=== PATIENT | male | born 1960 | race Two or more races ===

== ENCOUNTER 2022-10-29 07:08 | Emergency (ER) | payer MEDICAID ==
[~2022-10-29] VITALS: Ht 182.9 cm; Wt 90.1 kg
[~2022-10-29 07:08] MED LIST: ARIP1TAB7 PO; GABA300C10 PO; LIDO5DIS21; LISI-275 PO; PAR20T PO
[2022-10-29] MEDS ORDERED: IOHEXOL 350 MG/ML 100ML IJ ONE (08:11)
[2022-10-29 08:23] LABS: Urine Bacteria NONE SEEN /hpf (None Seen); Urine Blood Negative /uL (Negative); Urine WBC 1 /hpf (0 - 3)
[2022-10-29 08:35] LABS: Basophils # (auto) 0 10 ^3/uL (0-0.2); Basophils % (auto) 0.5 % (0.0-2.0); Eosinophils # (auto) 0.7 10 ^3/uL (0-0.8); Hematocrit 49.8 % (41.0-53.0); Hemoglobin 17.1 g/dL (13.5-17.5); Lymphocytes % (auto) 32.9 % (10.0-50.0); Mean Corpuscular Hemoglobin 31.9 pg (28.0-32.0); Mean Corpuscular Hgb Conc. 34.2 g/dL (32.0-36.0); Mean Corpuscular Volume 93.3 fL (80.0-100.0); Monocytes # (auto) 0.7 10 ^3/uL (0-1.3); Monocytes % (auto) 10.9 % (0.0-12.0); Neutrophils # (auto) 2.6 10 ^3/uL (1.6-8.6); Neutrophils % (auto) 43.7 % (37.0-80.0); Nucleated Red Blood Cells % 0.1 %; Red Blood Cells 5.34 10^6/uL (4.5-5.90); Red Cell Distribution Width 13.8 % (11.8-14.3)
[2022-10-29 10:56] LABS: Potassium 4.6 mmol/L (3.5-5.1)
[2022-10-29 11:04] LABS: Albumin 3.5 g/dL (3.4-5.0); BUN/Creatinine Ratio 15.1 (10.0-20.0); Calcium 9.2 mg/dL (8.5-10.1); Magnesium 2.4 mg/dL (1.6-2.6)
[2022-10-29 11:06] LABS: Bilirubin, Total 0.6 mg/dL (0.2-1.0); Total Protein 8.1 g/dL (6.4-8.2)
[2022-10-29 15:00] VITALS: BP 171/76
== END 2022-10-29 16:09 | disposition left against medical advice (07) ==
LOC: ER 07:08
DX: H91.91 Unspecified hearing loss, right ear (principal); R42 Dizziness and giddiness; M10.9 Gout, unspecified; I10 Essential (primary) hypertension; F41.9 Anxiety disorder, unspecified; F32.9 Major depressive disorder, single episode, unspecified; F17.210 Nicotine dependence, cigarettes, uncomplicated
CPT/HCPCS: 36415; 70496; 71045; 80053; 81001; 83735; 84484; 85025; 99285; Q9967

== ENCOUNTER 2023-05-08 07:03 | Emergency (ER) | payer MEDICAID ==
[~2023-05-08] VITALS: Ht 182.9 cm; Wt 103.2 kg
[~2023-05-08 07:03] MED LIST changes: +GABA-1250 PO; -GABA300C10 PO
[2023-05-08 07:39] VITALS: BP 129/87; PULSE 112; RESP 18; TEMP 98.4; O2SAT 96
[2023-05-08] MEDS ORDERED: ACETAMINOPHEN 500 MG TAB PO ONE (07:45)
[2023-05-08] MEDS ORDERED: IBUP-1456 PO (08:32)
[2023-05-08] MEDS ORDERED: CEPH500C PO (08:32)
[2023-05-08] MEDS ORDERED: TAMS-35 PO ×2 (21:08→21:09)
[2023-05-08] MEDS ORDERED: LISI10TA34 PO ×2 (21:08→21:09)
== END 2023-05-08 08:37 | disposition home or self-care (01) ==
LOC: ER 07:03
DX: S46.911A Strain of unspecified muscle, fascia and tendon at shoulder and upper arm level, right arm, initial encounter (principal); S16.1XXA Strain of muscle, fascia and tendon at neck level, initial encounter; S00.83XA Contusion of other part of head, initial encounter; I10 Essential (primary) hypertension; F17.210 Nicotine dependence, cigarettes, uncomplicated; W20.8XXA Other cause of strike by thrown, projected or falling object, initial encounter; Y93.89 Activity, other specified; Y92.89 Other specified places as the place of occurrence of the external cause; Y99.8 Other external cause status
CPT/HCPCS: 70450; 73030

== ENCOUNTER 2023-05-08 18:36 | Emergency (ER) | payer MEDICAID ==
[~2023-05-08] VITALS: Ht 182.9 cm; Wt 102.9 kg
[~2023-05-08 18:36] MED LIST changes: +CEPH500C PO; +IBUP-1456 PO
[2023-05-08] MEDS ORDERED: LISI10TA34 PO ×2 (21:08→21:09)
[2023-05-08] MEDS ORDERED: TAMS-35 PO ×2 (21:08→21:09)
[2023-05-08 21:42] VITALS: BP 155/84; PULSE 88; RESP 15; TEMP 98.7; O2SAT 98
== END 2023-05-08 21:43 | disposition home or self-care (01) ==
LOC: ER 18:36
DX: I10 Essential (primary) hypertension (principal); F17.210 Nicotine dependence, cigarettes, uncomplicated; N40.0 Benign prostatic hyperplasia without lower urinary tract symptoms; Z76.0 Encounter for issue of repeat prescription

== ENCOUNTER 2023-05-13 18:40 | Emergency (ER) | payer MEDICAID ==
[~2023-05-13] VITALS: Ht 182.9 cm; Wt 107.1 kg
[~2023-05-13 18:40] MED LIST changes: +LISI10TA34 PO; +TAMS-35 PO
[2023-05-13 19:35] VITALS: BP 152/87; PULSE 79; RESP 19; TEMP 98.4
[2023-05-13] MEDS ORDERED: NAP500T PO (22:14)
[2023-05-13 22:27] VITALS: O2SAT 97
== END 2023-05-13 22:38 | disposition home or self-care (01) ==
LOC: ER 18:40
DX: S83.8X2A Sprain of other specified parts of left knee, initial encounter (principal); M25.562 Pain in left knee; G89.29 Other chronic pain; I10 Essential (primary) hypertension; M10.9 Gout, unspecified; F41.9 Anxiety disorder, unspecified; F32.9 Major depressive disorder, single episode, unspecified; F17.210 Nicotine dependence, cigarettes, uncomplicated; Z98.890 Other specified postprocedural states; Z79.1 Long term (current) use of non-steroidal anti-inflammatories (NSAID); Z79.899 Other long term (current) drug therapy; X58.XXXA Exposure to other specified factors, initial encounter; Y93.89 Activity, other specified; Y92.89 Other specified places as the place of occurrence of the external cause; Y99.8 Other external cause status
CPT/HCPCS: 29505; 73562

== ENCOUNTER 2023-05-18 16:52 | Emergency (ER) | payer MEDICAID ==
[~2023-05-18 16:52] MED LIST changes: +NAP500T PO
== END 2023-05-18 17:39 | disposition left against medical advice (07) ==
LOC: ER 16:52
DX: H92.09 Otalgia, unspecified ear (principal); Z53.21 Procedure and treatment not carried out due to patient leaving prior to being seen by health care provider

== ENCOUNTER 2023-05-18 18:27 | Emergency (ER) | payer MEDICAID ==
[~2023-05-18] VITALS: Ht 182.9 cm; Wt 108.3 kg
[2023-05-18 18:40] VITALS: BP 157/90; PULSE 92; RESP 19; O2SAT 96
== END 2023-05-18 22:45 | disposition left against medical advice (07) ==
LOC: ER 18:27
DX: H92.03 Otalgia, bilateral (principal); H92.22 Otorrhagia, left ear; Z53.21 Procedure and treatment not carried out due to patient leaving prior to being seen by health care provider

== ENCOUNTER 2024-01-17 18:47 | Emergency (ER) | payer MEDICAID ==
[~2024-01-17] VITALS: Ht 177.8 cm; Wt 100.0 kg
[~2024-01-17 18:47] MED LIST changes: -ARIP1TAB7 PO; +ARIP20TA4 PO
[2024-01-17 18:50] VITALS: BP 139/81; PULSE 105; RESP 18; O2SAT 100
[2024-01-17] MEDS ORDERED: SODIUM CHLORIDE 0.9% 1,000 ML IV ONE (20:30)
[2024-01-17] MEDS ORDERED: ONDANSETRON HCL 4 MG/2 ML VIAL IV ONE (20:30)
[2024-01-17] MEDS ORDERED: MORPHINE SULFATE 4 MG/ML SYR/VIAL IV ONE (20:30)
== END 2024-01-17 21:09 | disposition left against medical advice (07) ==
LOC: ER 18:47 → EDBD 18:47 → ER 21:09
DX: R53.1 Weakness (principal); R07.89 Other chest pain; R10.9 Unspecified abdominal pain; F41.9 Anxiety disorder, unspecified; F32.A Depression, unspecified; I10 Essential (primary) hypertension; M1A.9XX0 Chronic gout, unspecified, without tophus (tophi); F17.210 Nicotine dependence, cigarettes, uncomplicated; Z79.899 Other long term (current) drug therapy

== ENCOUNTER 2025-01-08 17:25 | Emergency (ER) | payer MEDICAID ==
[~2025-01-08] VITALS: Ht 177.8 cm; Wt 105.0 kg
[~2025-01-08 17:25] MED LIST changes: +CLIN150C18 PO; -IBUP-1456 PO; -NAP500T PO; +PANT40T PO; +SUCR1SUS26 PO
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
[2025-01-08 20:18] VITALS: BP 148/77; PULSE 97; RESP 20; TEMP 97.7; O2SAT 98
[2025-01-09] MEDS ORDERED: ACET1CAP14 PO (04:57)
[2025-01-09] MEDS ORDERED: MECL1TAB42 PO (04:57)
== END 2025-01-08 20:38 | disposition home or self-care (01) ==
LOC: ER 17:25 → EDBD 17:25 → EDUNIT# 17:25 → ER 20:38
DX: S53.402A Unspecified sprain of left elbow, initial encounter (principal); S00.03XA Contusion of scalp, initial encounter; S00.01XA Abrasion of scalp, initial encounter; S50.312A Abrasion of left elbow, initial encounter; F10.10 Alcohol abuse, uncomplicated; I10 Essential (primary) hypertension; F32.A Depression, unspecified; F41.9 Anxiety disorder, unspecified; F17.210 Nicotine dependence, cigarettes, uncomplicated; Z79.899 Other long term (current) drug therapy; Z59.00 Homelessness unspecified; X58.XXXA Exposure to other specified factors, initial encounter; Y93.89 Activity, other specified; Y92.89 Other specified places as the place of occurrence of the external cause; Y99.8 Other external cause status
CPT/HCPCS: 70450; 73080

== ENCOUNTER 2025-01-09 03:31 | Emergency (ER) | payer MEDICAID ==
[~2025-01-09] VITALS: Ht 182.9 cm; Wt 98.8 kg
[2025-01-09] MEDS ORDERED: MECL1TAB42 PO (04:57)
[2025-01-09] MEDS ORDERED: ACET1CAP14 PO (04:57)
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
[2025-01-09] MEDS: MECLIZINE HCL 25 MG TAB PO ONE (06:28)
[2025-01-09] MEDS: LISINOPRIL 20 MG TAB PO ONE (06:28)
[2025-01-09] MEDS: KETOROLAC TROMETH 30 MG/ML 1ML VIAL IM ONE (06:29)
[2025-01-09] MEDS: ONDANSETRON ODT 4 MG TAB PO ONE (06:29)
[2025-01-09 08:10] VITALS: BP 156/88; PULSE 90; RESP 18; TEMP 98.7; O2SAT 98
== END 2025-01-09 08:19 | disposition home or self-care (01) ==
LOC: ER 03:31
DX: I10 Essential (primary) hypertension (principal); R42 Dizziness and giddiness; F17.210 Nicotine dependence, cigarettes, uncomplicated; F10.20 Alcohol dependence, uncomplicated; F32.A Depression, unspecified; F41.9 Anxiety disorder, unspecified; Z59.00 Homelessness unspecified; Z79.899 Other long term (current) drug therapy; Y90.9 Presence of alcohol in blood, level not specified
CPT/HCPCS: 96372; 99284; J1885; J8597; Q0162